=== PATIENT | female | born 1935 | race Caucasian/White ===

== ENCOUNTER → 2016-11-08 | Outpatient (CLI) | payer MEDICARE, OTHER | END | disposition home or self-care (01) | LOC: RAD 10:31 | DX: S83.411A Sprain of medial collateral ligament of right knee, initial encounter (principal); X58.XXXA Exposure to other specified factors, initial encounter; Y93.89 Activity, other specified; Y92.89 Other specified places as the place of occurrence of the external cause; Y99.8 Other external cause status ==

== ENCOUNTER → 2017-01-10 | Day surgery (SDC) | payer MEDICARE, OTHER ==
[~2017-01-10] VITALS: Ht 165.1 cm; Wt 47.6 kg
[~2017-01-10] MED LIST: BRIMONIDINE TAR OU; LATANOPROST2.5 ML OU; LEVOTHYROXIN0.088 M1 PO; LEVOTHYROXINE0.05 M1 PO; TIMOLOL MALEAT2.5 M1 OU
--- NOTE | ~2017-01-10 | O ---
[place], [place] OPERATIVE NOTE [id number] UNIT #: [id number] ROOM: DOCTOR: KEN ABBOTT MD BIRTHDATE: [birth year] DOS: 01/10/2017 PREOPERATIVE DIAGNOSIS: Cataract, right eye. POSTOPERATIVE DIAGNOSIS: Cataract, right eye. OPERATION: Extracapsular cataract extraction by phacoemulsification with posterior chamber intraocular lens implantation, right eye. ANESTHESIA: Monitored standby. OPERATIVE FINDINGS AND PROCEDURE: 2% Xylocaine topical anesthetic gel was applied to the eye in the preop area. The patient was taken to the operating room and prepped and draped in the standard fashion for sterile intraocular surgery. A time out procedure was performed verifying correct patient, correct site and corrects lens with Jermain Abbott M.D. The operating microscope was swung into position and the lid speculum was inserted. Using a Rachel paracentesis blade, a paracentesis was made through clear cornea. Viscoelastic was used to fill the anterior chamber. Using a metal keratome a 2.4 mm self-sealing clear corneal cataract incision was made temporally at the limbus. Using a pre-bent 25 gauge cystotome needle, a standard continuous curvilinear capsulorrhexis was performed. The anterior capsule was removed with forceps. The lens nucleus was hydrodissected and phacoemulsified in the posterior chamber. Cortical material was removed with the irrigation aspiration hand piece and the posterior capsule was then polished with a curet under irrigation. The posterior chamber and capsular bag were filled with viscoelastic. A posterior chamber intraocular lens manufactured by: [employer], Model #[id number], and 17.0 diopters in strength were then inserted into the posterior chamber and within the capsular bag using the lens cartridge and injector system. Viscoelastic was removed using the irrigation aspiration handpiece. The anterior chamber was filled with balanced salt solution through the paracentesis. Both the paracentesis site and cataract incisions were hydrated with BSS and verified to be water-tight and self-sealing. Cefuroxime 1 mg/0.1 mL was injected into the anterior chamber through the paracentesis site. The incision checked to be water-tight using a Weck-Sofy sponge. The integrity of the cataract wound and ocular tension were checked. Lid speculum and drapes were removed. The patient was transferred from the operating room to the recovery room in satisfactory condition. [place], [place] OPERATIVE NOTE NAME: MOSHE CORDOVA UNIT #: [id number] ROOM: DOCTOR: KEN ABBOTT MD BIRTHDATE: [birth year] KEN ABBOTT MD CM:OPRECORD:OPERATIVE NOTE 1102 [id number] KEN ABBOTT MD 01/10/17 1255 interface
[2017-01-10 10:12] VITALS: BP 185/78
[2017-01-10 11:00] VITALS: BP 132/61
[2017-01-10 11:32] VITALS: BP 148/51
== END | disposition home or self-care (01) ==
LOC: SDC 01-04 13:15
DX: H26.9 Unspecified cataract (principal); E07.9 Disorder of thyroid, unspecified; M81.0 Age-related osteoporosis without current pathological fracture; Z79.899 Other long term (current) drug therapy; H40.9 Unspecified glaucoma; Z80.9 Family history of malignant neoplasm, unspecified; Z98.890 Other specified postprocedural states

== ENCOUNTER → 2017-03-07 | Day surgery (SDC) | payer MEDICARE, OTHER ==
[~2017-03-07] VITALS: Ht 165.1 cm; Wt 47.6 kg
--- NOTE | ~2017-03-07 | O ---
[place], [place] OPERATIVE NOTE [id number] UNIT #: [id number] ROOM: DOCTOR: KEN ABBOTT MD BIRTHDATE: [birth year] DOS: 03/07/2017 PREOPERATIVE DIAGNOSIS: Cataract, left eye. POSTOPERATIVE DIAGNOSIS: Cataract, left eye. OPERATION: Extracapsular cataract extraction by phacoemulsification with posterior chamber intraocular lens implantation, left eye. ANESTHESIA: Monitored standby. OPERATIVE FINDINGS AND PROCEDURE: 2% Xylocaine topical anesthetic gel was applied to the eye in the preop area. The patient was taken to the operating room and prepped and draped in the standard fashion for sterile intraocular surgery. A time out procedure was performed verifying correct patient, correct site and corrects lens with Jermain Abbott M.D. The operating microscope was swung into position and the lid speculum was inserted. Using a Rachel paracentesis blade, a paracentesis was made through clear cornea. Viscoelastic was used to fill the anterior chamber. Using a metal keratome a 2.4 mm self-sealing clear corneal cataract incision was made temporally at the limbus. Using a pre-bent 25 gauge cystotome needle, a standard continuous curvilinear capsulorrhexis was performed. The anterior capsule was removed with forceps. The lens nucleus was hydrodissected and phacoemulsified in the posterior chamber. Cortical material was removed with the irrigation aspiration hand piece and the posterior capsule was then polished with a curet under irrigation. The posterior chamber and capsular bag were filled with viscoelastic. A posterior chamber intraocular lens manufactured by: [employer], Model #[id number], and 17.0 diopters in strength were then inserted into the posterior chamber and within the capsular bag using the lens cartridge and injector system. Viscoelastic was removed using the irrigation aspiration handpiece. The anterior chamber was filled with balanced salt solution through the paracentesis. Both the paracentesis site and cataract incisions were hydrated with BSS and verified to be water-tight and self-sealing. Cefuroxime 1 mg/0.1 mL was injected into the anterior chamber through the paracentesis site. The incision checked to be water-tight using a Weck-Sofy sponge. The integrity of the cataract wound and ocular tension were checked. Lid speculum and drapes were removed. The patient was transferred from the operating room to the recovery room in satisfactory condition. [place], [place] OPERATIVE NOTE NAME: MOSHE CORDOVA UNIT #: [id number] ROOM: DOCTOR: KEN ABBOTT MD BIRTHDATE: [birth year] KEN ABBOTT MD CM:OPRECORD:OPERATIVE NOTE [id number] KEN ABBOTT MD 03/07/17 1521 interface
[2017-03-07 11:00] VITALS: BP 163/82
[2017-03-07 12:27] VITALS: BP 135/39
[2017-03-07 12:42] VITALS: BP 135/59
[2017-03-07 12:52] VITALS: BP 123/60
== END | disposition home or self-care (01) ==
LOC: SDC 03-01 13:15
DX: H26.9 Unspecified cataract (principal); E03.9 Hypothyroidism, unspecified; Z80.9 Family history of malignant neoplasm, unspecified

== ENCOUNTER → 2017-05-04 | Outpatient (CLI) | payer MEDICARE, OTHER | END | disposition home or self-care (01) | LOC: RAD 12:59 | DX: Z13.820 Encounter for screening for osteoporosis (principal) ==

== ENCOUNTER → 2017-05-21 | Outpatient (CLI) | payer MEDICARE, OTHER | END | disposition home or self-care (01) | LOC: ORTHO 02:11 → RAD 09:00 → ORTHO 20:36 | DX: M25.561 Pain in right knee (principal) ==

== ENCOUNTER → 2017-07-18 | Outpatient (CLI) | payer MEDICARE, OTHER | END | disposition home or self-care (01) | LOC: ORTHO 00:42 | DX: M25.511 Pain in right shoulder (principal) ==